=== PATIENT | female | born 1990 | race Caucasian/White ===

== ENCOUNTER 2019-06-25 15:30 | Emergency (ER) | payer SELFPAY ==
[2019-06-25 15:38] VITALS: BP 135/81
--- NOTE | 2019-06-25 15:43 | ER Document Report ---
HPI - HPI Time Seen by Provider: 06/25/19 15:42 Pain Level: 4 Notes: Patient is an otherwise healthy 28-year-old female presenting with cough, congestion and sore throat over the last 3 days. She is concerned she may have strep throat as her son had been diagnosed with strep throat earlier this week. Patient denies any difficulty swallowing, difficulty breathing, fever or body aches. - REPRODUCTIVE Reproductive: DENIES: : Past Medical History - General Information source: Patient - Social History Smoking Status: Never Smoker Frequency of alcohol use: None Drug Abuse: None Family History: Reviewed & Not Pertinent - Medical History Medical History: Negative Surgical Hx: Negative - Immunizations Immunizations up to date: Yes Vertical Provider Document - CONSTITUTIONAL Notes: PHYSICAL EXAMINATION: GENERAL: Well-appearing, well-nourished and in no acute distress. HEAD: Atraumatic, normocephalic. EYES: Pupils equal round extraocular movements intact, conjunctiva are normal. ENT: Nares patent, oropharynx mildly erythematous, mild bilateral tonsillar swel ling noted without exudates or evidence of peritonsillar abscess. Uvula midline. NECK: Normal range of motion, no cervical lymphadenopathy noted. LUNGS: No respiratory distress, lung sounds clear and equal bilaterally. Musculoskeletal: Normal range of motion NEUROLOGICAL: Normal speech, normal gait. PSYCH: Normal mood, normal affect. SKIN: Warm, Dry, normal turgor, no rashes or lesions noted. - INFECTION CONTROL TRAVEL OUTSIDE OF THE [place] IN LAST 30 DAYS: No Course - Re-evaluation Re-evalutation: Patient appears well, nontoxic and vital signs are within normal limits. Rapid strep negative. We will continue to treat conservatively for sore throat and viral upper respiratory illness. Throat culture pending. Patient verbalizes understanding and agreement with plan will be discharged home at this time. The patient's emergency department workup and current diagnosis were explained to the patient and or family. Follow-up instructions were provided. Medications if prescribed were discussed. Instructions for when to return to the emergency department including specific worrisome symptoms were discussed with the patient and/or family. - Vital Signs Vital signs: Temp Pulse Resp BP Pulse Ox 98.1 F 100 18 135/81 H 95 06/25/19 15:37 06/25/19 15:37 06/25/19 15:37 06/25/19 15:37 06/25/19 15:37 Discharge - Discharge Clinical Impression: Upper respiratory infection, viral Condition: Stable Disposition: HOME, SELF-CARE Additional Instructions: Your symptoms are most likely due to a viral infection it should resolve over the next 7-14 days. You should take [id number] guanfacine per bottle instructions to help thin the mucus. For nasal congestion: I would recommend that you get [id number] oxymetazoline also known is afrin. Use only per bottle instructions and be sure to never use this for more than 3 days if you can develop severe rebound congestion. You may also use tylenol or ibuprofen as needed for aches and throat discomfort. Use the albuterol inhaler as needed, you may take 2 puffs every 4 hours. I am not starting on steroids as you have stated you are allergic to prednisone. Please be sure to drink plenty of fluids and get rest. Return to the emergency department he began having difficulty breathing, chest pain, persistent vomiting, or any other symptoms that are concerning to you. Forms: Return to Work
[2019-06-25] MEDS ORDERED: ALBUTEROL SULFATE HFA (90 MCG/PUFF) 8 GM MDI (1 MDI/ER DISP) IH ONE (16:33)
== END 2019-06-25 16:41 | disposition home or self-care (01) ==
LOC: ER 15:30
DX: J06.9 Acute upper respiratory infection, unspecified (principal); B97.89 Other viral agents as the cause of diseases classified elsewhere; R05 Cough; R09.81 Nasal congestion; J02.9 Acute pharyngitis, unspecified
CPT/HCPCS: 99283; 87070; 87880; J3490